=== PATIENT | female | born 1970 | race Caucasian/White ===

== ENCOUNTER 2021-05-01 13:31 | Emergency (ER) | payer OTHER ==
[2021-05-01 13:39] VITALS: BP 135/83; PULSE 85; BMI 43.0
[2021-05-01] MEDS ORDERED: GABAPENTIN 100 MG CAPSULE PO ONE (14:58)
[2021-05-01] MEDS ORDERED: GABAPENTIN 100 MG CAPSULE ONE (15:29)
[2021-05-01 15:44] LABS: BASO % 0.4 % (0-2.0); EOS % 3.9 % (0-4.5); HEMATOCRIT 37.5 % (32.4-45.2); HEMOGLOBIN 12.4 GM/dL (10.7-15.3); LYMPH % 24.6 % (8-40); MCH 27.8 pg (25.7-33.7); MCHC 33.1 g/dl (32.0-36.0); MEAN PLT VOLUME 8.6 fl (7.5-11.1); MONO % 7.6 % (3.8-10.2); NEUT % 63.5 % (42.8-82.8); PLATELET COUNT 251 10^3/uL (134-434); RBC 4.47 M/mm3 (3.60-5.2); RDW 14.9 % (11.6-15.6); WHITE BLOOD COUNT 7.2 K/mm3 (4.0-10.0)
[2021-05-01 16:03] LABS: BLOOD UREA NITROGEN 19.4 mg/dL (7-18)
[2021-05-01 16:07] LABS: CREATININE 0.8 mg/dL (0.55-1.3)
[2021-05-01 16:08] LABS: BILIRUBIN,TOTAL 0.4 mg/dL (0.2-1)
== END 2021-05-01 17:55 | disposition home or self-care (01) ==
LOC: JER 13:31
DX: M79.604 Pain in right leg (principal); M79.605 Pain in left leg
CPT/HCPCS: 36415; 80053; 85025; 93970-TC; 99284-25

== ENCOUNTER 2022-11-26 15:08 | Emergency (ER) | payer OTHER ==
[2022-11-26 15:12] VITALS: BP 145/67; PULSE 100; RESP 22; TEMP 98.3; BMI 50.8
[2022-11-26] MEDS ORDERED: ALBUTEROL SO4 2.5/IPRATROPIUM 0.5 INH SOL 3 ML VIAL.NEB. NEB ONE ×3 (15:22→16:26)
[2022-11-26] MEDS ORDERED: predniSONE 20 MG TABLET (UD) PO ONE (15:31)
[2022-11-26] MEDS ORDERED: predniSONE 20 MG TABLET (UD) ONE (16:30)
[2022-11-26] MEDS ORDERED: ALBUTEROL SO4 2.5/IPRATROPIUM 0.5 INH SOL 3 ML VIAL.NEB. NEB SCH (20:00)
== END 2022-11-26 17:35 | disposition left against medical advice (07) ==
LOC: JER 15:08
PROC: 3E0F7GC Introduction of Other Therapeutic Substance into Respiratory Tract, Via Natural or Artificial Opening (ICD-10-PCS; principal; 2022-11-26)
PROC: 3E0F7GC Introduction of Other Therapeutic Substance into Respiratory Tract, Via Natural or Artificial Opening (ICD-10-PCS; 2022-11-26)
DX: J45.901 Unspecified asthma with (acute) exacerbation (principal); R06.02 Shortness of breath
CPT/HCPCS: 99283-25